=== PATIENT | female | born 1990 | race Caucasian/White ===

== ENCOUNTER → 2018-07-26 | Outpatient (CLI) | payer OTHER ==
[~2018-07-26] MED LIST: BENA25CA2 PO
[2018-07-26 17:10] LABS: BASO % 0.3 % (0.0-1.0); EOS # 0.1 10^3/uL (0.0-0.50); EOS % 1.4 % (0.0-3.0); HEMATOCRIT 35.9 % (36.0-47.0); HEMOGLOBIN 12.2 g/dl (12.0-15.5); LYMPH # 1.7 10^3/uL (1.5-6.5); LYMPH % 17.4 % (24.0-44.0); MEAN CORPUSCULAR HEMOGLOBIN 26.3 pg (27.0-33.0); MEAN CORPUSCULAR VOLUME 77.4 fl (80.0-96.0); MONO # 0.4 10^3/uL (0.0-0.8); MONO % 4.5 % (0.0-5.0); NEUTROPHILS # 7.4 10^3/uL (1.8-7.7); NEUTROPHILS % 75.4 % (36.0-66.0); PLATELET COUNT, AUTOMATED 154 10^3/uL (150-450); RED BLOOD COUNT 4.64 10^6/uL (4.00-5.40); WHITE BLOOD COUNT 9.8 10^3/uL (4.0-10.0)
[2018-07-26 18:44] LABS: CHLAMYDIA DNA AMPLIFICATION NEGATIVE (NEGATIVE); GC DNA AMPLIFICATION NEGATIVE (NEGATIVE)
[2018-07-29 10:37] LABS: HEPATITIS C VIRUS ABY INDEX 0.1 INDEX (<0.8); HIV 1&2 SCREEN CENTAUR NEGATIVE (NEGATIVE); RUBELLA IgG QUALITATIVE IMMUNE (IMMUNE)
== END ==
LOC: M SMT 15:39
PROVIDERS: ATTEND Obstetrics & Gynecology
DX: Z36.89 Encounter for other specified antenatal screening (principal)

== ENCOUNTER → 2018-09-13 | Outpatient (CLI) | payer OTHER ==
--- NOTE | 2018-09-13 14:50 | REP ---
Clinical: Anatomical evaluation. Comparison: None . Findings: Examination demonstrates a single live intrauterine in cephalic presentation. motion is identified by technologist. Placenta is noted anterior and grade grade 1 without evidence for placenta previa or abruption. Amniotic fluid volume is normal. Cervix measures 2.0 cm in length and minimal funneling is suggested at the internal os. No evidence for nuchal cord. Gestational age by LMP 18 weeks 3 days with JACOBO 02/11/2019 . Gestational age by current measurements 19 weeks 2 days with JACOBO 02/05/2019 . FHR equals 153 beats per minute. BPD 4.4 cm 19 weeks 2 days HC 16.1 cm 18 weeks 6 days AC 14.4 cm 19 weeks 5 days FL 2.9 cm 19 weeks 0 days HL 2.9 cm 19 weeks 3 days HC/AC ratio 1.12 Estimated weight 287 grams ( 84th percentile). Anatomical assessment demonstrates normal structures including cranium, cavum, cerebellum/posterior fossa, facial features, lungs, stomach, cord insertion/three-vessel cord, bladder, and extremities. Small bilateral choroid plexus cysts are identified. Incomplete evaluation of the facial profile, heart/ventricular outflow tracts, kidneys and spine noted. Impression: 1. Single live intrauterine in cephalic presentation demonstrating appropriate interval growth. 2. Cervix measures 2.0 cm length and demonstrates very minimal funneling at the internal os. 3. Cord plexus cysts and limitations as described above warrant reevaluation and follow-up. Electronically Signed by Subhash Yung MD 09/13/2018 02:42 P
== END ==
LOC: M RAD 12:51
PROVIDERS: ATTEND Obstetrics & Gynecology
DX: Z34.82 Encounter for supervision of other normal pregnancy, second trimester (principal); Z36.89 Encounter for other specified antenatal screening; Z3A.19 19 weeks gestation of pregnancy

== ENCOUNTER → 2018-09-20 | Outpatient (CLI) | payer OTHER | LOC: M LAB 07:47 | PROVIDERS: ATTEND Obstetrics & Gynecology | DX: O99.211 Obesity complicating pregnancy, first trimester (principal); Z3A.00 Weeks of gestation of pregnancy not specified ==

== ENCOUNTER → 2018-10-11 | Outpatient (CLI) | payer OTHER ==
--- NOTE | 2018-10-11 17:23 | REP ---
OB ULTRASOUND: Real-time sonographic evaluation of the gravid uterus is performed utilizing transabdominal and endovaginal technique. There is a single living intrauterine gestation. The estimated gestational age is 22 weeks 3 days based. EDC 02/11/2019. Today's measurements indicate appropriate growth. BPD 57 mm 23 weeks 2 days 71st percentile. HC 204 mm 22 weeks 4 days 54th percentile. AC 200 mm 24 weeks 5 days over 95th percentile. Femur length 41 mm 23 weeks 2 days 71st percentile. HC/AC ratio 1.02 slightly below normal range of 1.04 to 1.23. Estimated weight 363 grams 95th percentile. heart rate 165 beats per minute. SEEN/GROSSLY UNREMARKABLE Lateral ventricles Yes Posterior fossa Yes Upper lip No Four-chamber heart Yes LVOT No RVOT No Stomach Yes Cord insertion Yes Three vessel cord Yes Kidneys Yes Bladder Yes Spine Yes position: Transverse with the head toward to the maternal left side. Placenta is anterior and grade 0 with no previa or abruption. Amniotic fluid: Within normal limits. Cervix measures 6 mm in length with fundal pressure. Umbilical cord is seen at the internal cervical os. Cystic structure right ovary probably represents corpus luteum, approximately 1.6 cm in maximum diameter. Electronically Signed by Bib Turcios MD 10/14/2018 01:45 P
== END ==
LOC: M RAD 13:52
PROVIDERS: ATTEND Obstetrics & Gynecology
DX: O09.212 Supervision of pregnancy with history of pre-term labor, second trimester (principal); Z3A.22 22 weeks gestation of pregnancy

== ENCOUNTER → 2018-10-31 | Outpatient (CLI) | payer OTHER ==
--- NOTE | 2018-11-01 16:33 | REP ---
Clinical: Anatomical evaluation. Comparison: 10/11/2018 . Findings: Examination demonstrates a single live intrauterine in breech presentation. motion is identified by technologist. Placenta is noted anterior and grade grade zero without evidence for placenta previa or abruption. Amniotic fluid volume is normal. Cervix measures 1.5 cm in length and appears closed. Cerclage identified. No evidence for nuchal cord. Gestational age by LMP 25 weeks 2 days with JACOBO 02/11/2019 . Gestational age by current measurements 26 weeks 1 day with JACOBO 02/05/2019 . FHR equals 153 beats per minute. Estimated weight 964 grams ( 82nd percentile). Anatomical assessment demonstrates normal structures including cranium, choroid plexus, cavum, cerebellum/posterior fossa, facial features, lungs, four-chamber heart, diaphragm, stomach, cord insertion/three-vessel cord, kidneys/bladder, spine, and extremities. Impression: 1. Intrauterine in breech presentation demonstrating appropriate interval growth. 2. Closed cervix measures 1.5 cm in length with cerclage in place. Electronically Signed by Subhash Yung MD 11/01/2018 04:25 P
== END ==
LOC: M RAD 12:22
PROVIDERS: ATTEND Obstetrics & Gynecology
DX: O99.212 Obesity complicating pregnancy, second trimester (principal); Z3A.26 26 weeks gestation of pregnancy

== ENCOUNTER → 2025-04-21 | Outpatient (REF) | payer OTHER ==
[~2025-04-21] MED LIST changes: +BENA25CA4 PO; +METF500T13 PO; +PRENTAB9 PO; +VENTAER INH
[2025-04-23 09:53] LABS: HPV APTIMA Not Detected (Not Detected)
== END ==
LOC: M PLALAB 15:21
PROVIDERS: ATTEND Physician Assistant
DX: Z12.4 Encounter for screening for malignant neoplasm of cervix (principal)

== ENCOUNTER → 2025-05-05 | Outpatient (CLI) | payer OTHER ==
[2025-05-05 15:00] LABS: Trichomonas vaginalis (AMP) NOT DETECTED (NEGATIVE)
[2025-05-05 15:03] LABS: HIV 1&2 SCREEN NEGATIVE (NEGATIVE)
[2025-05-05 15:11] LABS: HEP C VIRUS AB INDEX SOURCE PT < 0.0 INDEX (0.0-0.8)
[2025-05-05 15:24] LABS: GC DNA AMPLIFICATION NEGATIVE (NEGATIVE)
== END ==
LOC: M PLALAB 11:45
PROVIDERS: ATTEND Physician Assistant
DX: Z11.3 Encounter for screening for infections with a predominantly sexual mode of transmission (principal)